=== PATIENT | female | born 1975 | race Caucasian/White ===

== ENCOUNTER 2025-04-23 23:25 | Emergency (ER) | payer BC, SELFPAY ==
[2025-04-23 23:37] VITALS: BP 183/111; PULSE 86; RESP 18; TEMP 36.5; O2SAT 98; BMI 38.9
[2025-04-24 02:09] LABS: Glucose Urine UA 3+ (Normal); Nitrate Urine Negative (Negative); Specific Gravity, Urine 1.022 (1.005-1.030)
[2025-04-24 02:14] LABS: Add Urine Microscopic? YES
[2025-04-24 02:40] LABS: Hematocrit 41.0 % (36-47); Hemoglobin 12.90 g/dL (11.27-16.99); Mean Corpuscular HGB Conc 31.5 g/dL (30-55); Mean Corpuscular Hemoglobin 26.9 pg (27-33); Mean Corpuscular Volume 85.4 fl (85-98); Nucleated Red Blood Cells % 0 %; Platelet Count 332 10^3/cmm (157-399); Red Blood Count 4.80 10^6/uL (3.85-5.65); White Blood Count 13.06 10^3/uL (3.29-11.43)
--- NOTE | 2025-04-24 02:47 | CTR_ITS ---
PROCEDURE INFORMATION: Exam: CT Abdomen And Pelvis Without Contrast Exam date and time: 04/24/2025 3:10 AM Age: 49 years old Clinical indication: Abdominal pain; Prior surgery; Surgery date: 6+ months; Surgery type: Gb; C/O left flank pain TECHNIQUE: Imaging protocol: Computed tomography of the abdomen and pelvis without contrast. Radiation optimization: All CT scans at this facility use at least one of these dose optimization techniques: automated exposure control; mA and/or kV adjustment per patient size (includes targeted exams where dose is matched to clinical indication); or iterative reconstruction. COMPARISON: No relevant prior studies available. RADIATION DOSE METRICS: Total DLP (mGy-cm): 1105.4 FINDINGS: Esophagus: There is nonspecific distal esophageal wall thickening, which may represent mild esophagitis. Liver: Diffuse hepatic hypoattenuation. Gallbladder and biliary ducts: Status post cholecystectomy. No evidence of significant biliary obstruction. Pancreas: Normal. No ductal dilation. Spleen: Normal. No splenomegaly. Adrenal glands: Normal. No mass. Kidneys and ureters: 2 mm left-sided mid ureteral stone. Mild hydronephrosis. Stomach and bowel: Colonic diverticulosis is present without diverticulitis. Bowel has normal caliber. Appendix: No evidence of appendicitis. Intraperitoneal space: Unremarkable. No free air. No significant fluid collection. Vasculature: Unremarkable. No abdominal aortic aneurysm. Lymph nodes: Unremarkable. No enlarged lymph nodes. Urinary bladder: Unremarkable as visualized. Reproductive: Unremarkable as visualized. Bones/joints: Unremarkable. No acute fracture. Soft tissues: Unremarkable. CT/CT kidney stone [id number] IMPRESSION: 1. 2 mm left-sided mid ureteral stone. Mild hydronephrosis. 2. There is nonspecific distal esophageal wall thickening, which may represent mild esophagitis. Clinical correlation recommended. 3. Hepatic steatosis.
[2025-04-24 02:54] VITALS: RESP 16; O2SAT 97
[2025-04-24] MEDS: morphine 4 mg/mL SDV 1 mL IVP (02:54)
[2025-04-24] MEDS: ondansetron 2 mg/ML SDV 2 mL 4 MG IVP (02:55)
[2025-04-24 02:56] LABS: Alanine Aminotransferase 29 U/L (0-33); Albumin Level 4.3 g/dL (3.5-5.2); Alkaline Phosphatase 82 U/L (35-105); Blood Urea Nitrogen 16 mg/dL (6-20); Calcium 9.9 mg/dL (8.5-10.5); Carbon Dioxide 22 mmol/L (22-29); Chloride 97 mmol/L (98-107); Creatinine Clr Calc Pharmacy 83.3037; Globulin 3.6 g/dL (1.3-4.6); Glucose 319 mg/dL (65-115); Lipase 34 U/L (13-60); Osmolality Calculated 295 mOsm/kg (285-295); Sodium 136 mmol/L (136-145); Total Protein 7.9 g/dL (6.6-8.7)
[2025-04-24 02:57] LABS: Anion Gap 21.2 (5-19); Aspartate Amino Transferase 28 U/L (0-32); Potassium 4.2 mmol/L (3.5-5.1)
[2025-04-24 03:01] VITALS: BP 167/111; PULSE 101; RESP 18; O2SAT 92
[2025-04-24 03:01] LABS: HCG Qualitative Urine. Negative (Negative)
--- NOTE | 2025-04-24 03:30 | ED_ITS ---
HPI - Abdominal Pain 2 General: Chief Complaint: Abdominal Pain Stated Complaint: L Side lower back pain N/V Time Seen by Provider: 04/24/25 02:39 History of Present Illness: Left flank pain with nausea and vomiting x 1 day. Denies any dysuria. Denies any fever. Denies any constipation or diarrhea. Denies any vaginal bleeding or discharge. No history of kidney stones. Related Data Previous Rx's ?Medication ?Instructions ?Recorded hydrocodone 5 mg-acetaminophen 325 1 tab PO Q6H #20 ta bs 04/24/25 mg tablet ondansetron 4 mg disintegrating 4 mg PO TID 5 days #15 tabs 04/24/25 tablet Allergies Allergy/AdvReac Type Severity Reaction Status Date / Time meperidine (From Demerol) Allergy ALGY-Hives Verified 04/23/25 23:46 Physical Exam 2 Neck/C-Spine: COMMON NORMALS: no JVD Resp: COMMON NORMALS: normal respiratory effort, No retractions, No use of accessory muscles, clear to auscultation bilaterally and percussion normal A USCULTATION: clear to auscultation bilaterally PERCUSSION: percussion normal Cardio: COMMON NORMALS: no JVD, regular rate, regular rhythm, S1 normal heart sound present, S2 normal heart sound present, No gallops present (Cardio), No clicks present (Cardio), No murmurs present (Cardio), No rub (Cardio) and Peripheral pulses 2+ throughout RATE: regular rate RHYTHM: regular rhythm HEART SOUNDS: S1 normal heart sound present and S2 normal heart sound present PERIPHERAL PULSES: Peripheral pulses 2+ throughout GI: OTHER: Left flank pain to palpation. No anterior abdominal pain. Course 2 Vital Signs: Vital signs: Vital Signs Temperature 97.7 F 04/23/25 23:37 Pulse Rate 101 H 04/24/25 03:01 Respiratory Rate 18 04/24/25 03:01 Blood Pressure 167/111 04/24/25 03:01 Pulse Oximetry 92 04/24/25 03:01 Oxygen Delivery Me thod Room Air 04/24/25 03:01 MDM - Abdominal Pain Medical Decision Making Patient with left flank pain with nausea and vomiting x 1 day. Feeling much better now after treatment in the emergency department. Patient has a 2 mm left-sided ureteral stone. Discussed findings with patient. Recommended to drink lots of fluids and water and try to pass the stone. Given [place] and Zofran as needed for pain. Lab Data 04/24/25 02:35 04/24/25 02:35 Labs/Radiology: Radiology Impressions Abdomen/Pelvis CT 04/24/25 02:47 IMPRESSION: 1. 2 mm left-sided mid ureteral stone. Mild hydronephrosis. 2. There is nonspecific distal esophageal wall thickening, which may represent mild esophagitis. Clinical correlation recommended. 3. Hepatic steatosis. Laboratory Results WBC 13.06 10^3/uL (3.29-11.43) H 04/24/25 02:35 RBC 4.80 10^6/uL (3.85-5.65) 04/24/25 02:35 Hgb 12.90 g/dL (11.27-16.99) 04/24/25 02:35 Hct 41.0 % (36-47) 04/24/25 02:35 MCV 85.4 fl (85-98) 04/24/25 02:35 MCH 26.9 pg (27-33) L 04/24/25 02:35 MCHC 31.5 g/dL (30-55) 04/24/25 02:35 RDW 13.4 % (12.1-15.1) 04/24/25 02:35 Plt Count 332 10^3/cmm (157-399) 04/24/25 02:35 MPV 10.0 fL (7.4-10.4) 04/24/25 02:35 Neut % (Auto) 75.3 % 04/24/25 02:35 Lymph % (Auto) 17.3 % 04/24/25 02:35 [place] % (Auto) 5.3 % 04/24/25 02:35 Eos % (Auto) 1.3 % 04/24/25 02:35 Baso % (Auto) 0.5 % 04/24/25 02:35 Neut # (Auto) 9.84 10^3/uL (1.8-7.7) H 04/24/25 02:35 Lymph # (Auto) 2.3 10^3/uL (0.8-4.8) 04/24/25 02:35 [place] # (Auto) 0.7 10^3/uL (0.2-0.9) 04/24/25 02:35 Eos # (Auto) 0.2 10^3/uL (0.0-0.8) 04/24/25 02:35 Baso # (Auto) 0.1 10^3/uL (0.0-0.1) 04/24/25 02:35 Nucleated RBC % (auto) 0 % 04/24/25 02:35 Nucleated RBCs # 0.0 /100WBC 04/24/25 02:35 Sodium 136 mmol/L (136-145) 04/24/25 02:35 Potassium 4.2 mmol/L (3.5-5.1) 04/24/25 02:35 Chloride 97 mmol/L (98-107) L 04/24/25 02:35 Carbon Dioxide 22 mmol/L (22-29) 04/24/25 02:35 Anion Gap 21.2 (5-19) H 04/24/25 02:35 BUN 16 mg/dL (6-20) 04/24/25 02:35 Creatinine 0.9 mg/dL (0.5-0.9) 04/24/25 02:35 GFR Calculation 66.0 mL/min (90-130) L 04/24/25 02:35 Glucose 319 mg/dL (65-115) H 04/24/25 02:35 Calculated Osmolality 295 mOsm/kg (285-295) 04/24/25 02:35 Calcium 9.9 mg/dL (8.5-10.5) 04/24/25 02:35 Total Bilirubin 0.7 mg/dL (0.15-1.2) 04/24/25 02:35 AST 28 U/L (0-32) 04/24/25 02:35 ALT 29 U/L (0-33) 04/24/25 02:35 Alkaline Phosphatase 82 U/L (35-105) 04/24/25 02:35 Total Protein 7.9 g/dL (6.6-8.7) 04/24/25 02:35 Albumin 4.3 g/dL (3.5-5.2) 04/24/25 02:35 Globulin 3.6 g/dL (1.3-4.6) 04/24/25 02:35 Lipase 34 U/L (13-60) 04/24/25 02:35 HCG, Qual Negative (Negative) 04/24/25 02:02 Urine Color Yellow (Yellow) 04/24/25 02:02 Urine Appearance Clear (CLEAR) 04/24/25 02:02 Urine pH 5.5 (5-7) 04/24/25 02:02 Ur Specific [place] 1.022 (1.005-1.030) 04/24/25 02:02 Urine Protein 1+ (Negative) A 04/24/25 02:02 Urine Glucose (UA) 3+ (Normal) H 04/24/25 02:02 Urine Ketones Trace (Negative) 04/24/25 02:02 Urine Blood 1+ (Negative) A 04/24/25 02:02 Urine Nitrate Negative (Negative) 04/24/25 02:02 Urine Bilirubin Negative (Negative) 04/24/25 02:02 Urine Urobilinogen 1.0 mg/dL (Negative) 04/24/25 02:02 Ur Leukocyte Esterase Negative (Negative) 04/24/25 02:02 Urine RBC 0-2 /hpf (0-2) 04/24/25 02:02 Urine WBC 0-5 /hpf (0-5) 04/24/25 02:02 Ur Squamous Epith Cells 0-5 /hpf (0-5) 04/24/25 02:02 Amorphous Sediment Not Reportable 04/24/25 02:02 Urine Bacteria None seen /hpf (NONE) 04/24/25 02:02 Hyaline Casts 2.87 /lpf 04/24/25 02:02 All radiology interpretation(s) finalized by discharge Discharge Plan Discharge Patient Disposition: Home Clinical Impression: Calculus of kidney Condition: Stable Prescriptions: New hydrocodone-acetaminophen 5-325 mg tablet 1 tab PO Q6H Qty: 20 0RF ondansetron 4 mg tablet,disintegrating 4 mg PO TID 5 Days Qty: 15 0RF Discharge Orders: Discharge ED (Routine); Ordered 04/24/25 Ordered By: Giovanny Estrada Patient Instructions: Opioid Safety, Pain Management, Patient Portal & Tony Instructions Print Language: Senegalese Coding Level of Care Code ED Appeals Analyst for Jeramy Khoury
[2025-04-24 04:36] VITALS: BP 151/99; PULSE 93; RESP 17; O2SAT 94
== END 2025-04-24 04:37 | disposition home or self-care (01) ==
PROVIDERS: Registered Nurse; Emergency Provider Emergency Medicine
DX: N20.0 Calculus of kidney (principal)
CPT/HCPCS: 74176; 80053; 81001; 81025; 83690; 85025; 96374; 96375; 99285; J1885; J2270; J2405; J7030